=== PATIENT | male | born 1970 | race American Indian/Alaskan Native ===

== ENCOUNTER 2018-08-26 07:52 | Emergency (ER) | payer SELFPAY ==
--- NOTE | 2018-08-26 08:36 | Emergency Department Report ---
ED Eye Problem HPI - General Chief complaint: Eye Problems Stated complaint: LFT EYE PAIN Time Seen by Provider: 08/26/18 08:36 Source: patient Mode of arrival: Ambulatory Limitations: No Limitations - History of Present Illness Initial comments: 47-year-old -[place] male presents to the emergency room for left eye injury occurred on Wednesday. Patient states he injured his arm while moving furniture. Patient has taken nothing for pain. He does admit to some blurriness. Patient does report a past medical history of asthma COPD and sleep apnea. Patient has no primary care provider and is allergic to Wellbutrin. chief complaint: eye pain Onset/Timin -: days(s) If Injury: direct trauma Eye Symptoms: pain Severity scale (0 -10): 4 If Pain, Quality: sharp, aching Consistency: intermittent Associated Symptoms: none Treatments Prior to Arrival: none - Related Data Patient Tetanus UTD: No Previous Rx's Medication Instructions Recorded Last Taken Type Erythromycin [Erythromycin Ophth 1 applic OP QID 10 Days #1 tube 08/26/18 Unknown Rx Oint] Ibuprofen [Motrin 800 MG tab] 800 mg PO Q8HR PRN #30 tablet 08/26/18 Unknown Rx Allergies Allergy/AdvReac Type Severity Reaction Status Date / Time bupropion [From Wellbutrin] Allergy Anaphylaxis Verified 08/26/18 08:03 ED Review of Systems ROS: Stated complaint: LFT EYE PAIN Other details as noted in HPI Comment: All other systems reviewed and negative Eyes: eye pain ED Past Medical Hx - Past Medical History Previous Medical History?: Yes Hx Asthma: Yes Hx COPD: Yes Additional medical history: Sleep apnea - Surgical History Past Surgical History?: No - Social History Smoking Status: Never Smoker Substance Use Type: None - Medications Home Medications: Home Medications Medication Instructions Recorded Confirmed Last Taken Type Erythromycin [Erythromycin Ophth 1 applic OP QID 10 Days #1 tube 08/26/18 Unknown Rx Oint] Ibuprofen [Motrin 800 MG tab] 800 mg PO Q8HR PRN #30 tablet 08/26/18 Unknown Rx ED Physical Exam - General Limitations: No Limitations General appearance: alert, in no apparent distress - Head Head exam: Present: atraumatic, normocephalic - Eye Pupils: Present: other (left eye foreign body cornea are proximal to 7:00) - Expanded Eye Exam Expanded Eyelids: Swelling: Left - ENT ENT exam: Present: mucous membranes moist - Neck Neck exam: Present: normal inspection, full ROM - Neurological Exam Neurological exam: Present: alert, oriented X3 - Psychiatric Psychiatric exam: Present: normal affect, normal mood - Skin Skin exam: Present: warm, dry, intact, normal color. Absent: rash ED Course Vital Signs 08/26/18 08:09 Temperature 98.2 F Pulse Rate 82 Respiratory 16 Rate Blood Pressure 152/103 [Left] O2 Sat by Pulse 100 Oximetry Critical care attestation.: If time is entered above; I have spent that time in minutes in the direct care of this critically ill patient, excluding procedure time. ED Disposition Clinical Impression: Foreign body in eye Disposition: DC-01 TO HOME OR SELFCARE Is pt being admited?: No Does the pt Need Aspirin: No Condition: Stable Instructions: Eye Foreign Body (ED) Additional Instructions: Please use antibiotic eye ointment as prescribed. Ibuprofen for pain management. Increase her water intake while taking ibuprofen. It is very important for you to follow up with an muffle operator I have listed several below for your convenience. Prescriptions: Erythromycin [Erythromycin Ophth Oint] 1 applic OP QID 10 Days #1 tube Ibuprofen [Motrin 800 MG tab] 800 mg PO Q8HR PRN #30 tablet PRN Reason: Pain , Severe (7-10) Referrals: KYMBERLY MERCER MD [Staff Physician] - 3-5 Days [facility] [Provider Group] - 3-5 Days [facility] [Provider Group] - 3-5 Days
[2018-08-26] MEDS ORDERED: FUL-GLO OP ONE (08:58)
[2018-08-26] MEDS ORDERED: BSS OU ONE (08:58)
[2018-08-26] MEDS ORDERED: IBUPROFEN PO ONE (08:59)
[2018-08-26 10:24] VITALS: BP 130/85
== END 2018-08-26 10:21 | disposition home or self-care (01) ==
LOC: ED 07:52
DX: M79.5 Residual foreign body in soft tissue (principal); Z88.8 Allergy status to other drugs, medicaments and biological substances
CPT/HCPCS: 99282

== ENCOUNTER 2020-01-21 18:49 | Emergency (ER) | payer SELFPAY ==
[2020-01-21] MEDS ORDERED: KETOROLAC 60 MG/2 ML INJ IM ONE (20:23)
[2020-01-21] MEDS ORDERED: IPRATROPIUM/ALBUTEROL SULFATE 3 ML AMPUL.NEB IH ONE (20:23)
[2020-01-21] MEDS ORDERED: HYDROcodone/ACETAMINOPHEN 5-325 MG TAB PO ONE (20:23)
--- NOTE | 2020-01-21 21:15 | XRay Report ---
RIGHT ANKLE 3 VIEWS 2024 INDICATION: persistant r ankle pain, fxt in 12/12, no f/u COMPARISON: 12/13/2019 FINDINGS: The previously noted oblique fracture of the distal fibula is again seen. Callus formation is noted but I do not see obvious bony union. There is still mild posterior displacement and mild ove rriding. Mild subluxation of the tibia medially on the talus is again noted though is improved. Diffu se soft tissue swelling is seen. No additional fractures are noted. Signer Name: Grover Zuñiga MD Signed: 01/21/2020 9:10 PM Workstation Name: [id number]
--- NOTE | 2020-01-21 21:21 | XRay Report ---
CHEST 1 VIEW 194 INDICATION / CLINICAL INFORMATION: sob COMPARISON: None available. FINDINGS: SUPPORT DEVICES: None HEART / MEDIASTINUM: No significant abnormality. LUNGS / PLEURA: No significant pulmonary or pleural abnormality. No pneumothorax. ADDITIONAL FINDINGS: No significant additional findings. IMPRESSION: No significant acute abnormality Signer Name: Grover Zuñiga MD Signed: 01/21/2020 9:17 PM Workstation Name: [id number]
--- NOTE | 2020-01-21 21:54 | Emergency Department Report ---
ED Lower Extremity HPI - General Chief Complaint: Dyspnea/Respdistress Stated Complaint: RENAE Time Seen by Provider: 01/21/20 19:17 Source: EMS Mode of arrival: Stretcher Limitations: Physical Limitation - History of Present Illness Initial Comments: 49-year-old male who admits to cocaine abuse, alcohol abuse, and marijuana abuse with a past medical history of asthma, COPD, sleep apnea presents to the hospital complaining of chronic shortness of breath which is unchanged and significant right ankle pain. Patient states he fractured his ankle and was seen here December 13, 2019. Patient denies reinjuring his ankle. Patient states that since being diagnosed with ankle fracture here he was seen at [place]. He has been told that he needs surgery but did not follow-up. He also is not currently wearing a splint or cast because his splint got wet and therefore he removed it. Even though he is supposed to be nonweightbearing he is bearing weight on this broken ankle. Patient now presents to the hospital with moderate to severe right ankle pain worse with movement, palpation, ambulation. He states he has been unable to place pressure on it since last night. Patient states that he has chronic shortness of breath that is unchanged and denies worsening and chronic cough or fever. Patient was found outside a building with shortness of breath as per EMS. He received albuterol 5 mg inhaled in route with improvement. Patient admits to active abuse cocaine, alcohol, and marijuana but denies history of alcohol withdrawal tremors. - Related Data Previous Rx's Medication Instructions Recorded Last Taken Type Erythromycin [Erythromycin Ophth 1 applic OP QID 10 Days #1 tube 08/26/18 Unkno wn Rx Oint] Ibuprofen [Motrin 800 MG tab] 800 mg PO Q8HR PRN #30 tablet 08/26/18 Unknown Rx HYDROcodone/APAP 5-325 [[place] 1 each PO Q6HR PRN #12 tablet 12/13/19 Unknown Rx 5/325] Ibuprofen [Motrin 800 MG tab] 800 mg PO Q8HR PRN #20 tablet 12/13/19 Unknown Rx Albuterol Sulfate [Proventil Hfa] 1 - 2 puff IH Q4HR PRN #1 01/21/20 Unknown Rx hfa.aer.ad Ibuprofen [Motrin] 800 mg PO Q8HR PRN #20 tablet 01/21/20 Unknown Rx Prednisone [predniSONE 10 mg 10 mg PO .TAPER #1 tab.ds.pk 01/21/20 Unknown Rx (6-Day Pack, 21 Tabs)] Allergies Allergy/AdvReac Type Severity Reaction Status Date / Time bupropion [From Wellbutrin] Allergy Anaphylaxis Verified 08/26/18 08:03 ED Review of Systems ROS: Stated complaint: RENAE Other details as noted in HPI Comment: All other systems reviewed and negative ED Past Medical Hx - Past Medical History Previous Medical History?: Yes Hx Asthma: Yes Hx COPD: Yes Additional medical history: Sleep apnea - Surgical History Past Surgical History?: Yes - Social History Smoking Status: Current Every Day Smoker Substance Use Type: Alcohol, Cocaine, Marijuana - Medications Home Medications: Home Medications Medication Instructions Recorded Confirmed Last Taken Type Erythromycin [Erythromycin Ophth 1 applic OP QID 10 Days #1 tube 08/26/18 Unknown Rx Oint] Ibuprofen [Motrin 800 MG tab] 800 mg PO Q8HR PRN #30 tablet 08/26/18 01/22/20 Unknown Rx HYDROcodone/APAP 5-325 [[place] 1 each PO Q6HR PRN #12 tablet 12/13/19 01/22/20 Unknown Rx 5/325] Ibuprofen [Motrin 800 MG tab] 800 mg PO Q8HR PRN #20 tablet 12/13/19 01/22/20 Unknown Rx Albuterol Sulfate [Proventil Hfa] 1 - 2 puff IH Q4HR PRN #1 01/21/20 Unknown Rx hfa.aer.ad Ibuprofen [Motrin] 800 mg PO Q8HR PRN #20 tablet 01/21/20 Unknown Rx Prednisone [predniSONE 10 mg 10 mg PO .TAPER #1 tab.ds.pk 01/21/20 Unknown Rx (6-Day Pack, 21 Tabs)] ED Physical Exam - General Limitations: Physical Limitation - Other Other exam information: General: Mild distress secondary pain Head: Atraumatic Eyes: normal appearance ENT: Moist mucous membranes Neck: Normal appearance, no midline tenderness Chest: Mild bilateral expiratory wheezing without tachypnea or accessory muscle use CV: Regular rate and rhythm Abdomen: Soft, normal bowel sounds, nontender, nondistended, no rebound or guarding Back: Normal inspection Extremity: Diffuse right ankle swelling with tenderness on the medial lateral malleolus. 2+ DP and posterior tibial pulses. Cap refill less than 2 seconds. Pain with flexion and extension of ankle Neuro: Alert O x 3, no facial asymmetry, speech clear, no gross motor sensory deficit Psych: Appropriate behavior Skin: No rash ED Course Vital Signs 01/21/20 01/21/20 01/21/20 19:36 20:00 21:00 Temperature 98.3 F Pulse Rate 99 H 109 H 97 H Respiratory 16 29 H 19 Rate Blood Pressure 142/76 133/82 Blood Pressure 145/94 [Left] O2 Sat by Pulse 99 95 97 Oximetry 01/21/20 01/21/20 01/21/20 21:07 21:08 21:38 Temperature Pulse Rate Respiratory 16 19 16 Rate Blood Pressure Blood Pressure [Left] O2 Sat by Pulse Oximetry 01/21/20 01/22/20 01/22/20 22:07 00:09 01:00 Temperature 98.1 F Pulse Rate 72 Respiratory 16 18 20 Rate Blood Pressure Blood Pressure 117/76 [Left] O2 Sat by Pulse 100 97 Oximetry ED Lower Extremity MDM - Lab Data Result diagrams: 01/22/20 00:15 01/22/20 00:15 Lab Results 01/22/20 01/22/20 01/22/20 Range/Units 00:15 00:15 00:15 WBC 6.0 (4.5-11.0) K/mm3 RBC 4.00 (3.65-5.03) M/mm3 Hgb 13.7 (11.8-15.2) gm/dl Hct 40.2 (35.5-45.6) % MCV 101 H (84-94) fl MCH 34 H (28-32) pg MCHC 34 (32-34) % RDW 14.3 (13.2-15.2) % Plt Count 293 (140-440) K/mm3 Lymph % (Auto) 41.5 H (13.4-35.0) % Richardson % (Auto) 5.7 (0.0-7.3) % Eos % (Auto) 5.8 H (0.0-4.3) % Baso % (Auto) 0.6 (0.0-1.8) % Lymph # (Auto) 2.5 (1.2-5.4) K/mm3 Richardson # (Auto) 0.3 (0.0-0.8) K/mm3 Eos # (Auto) 0.3 (0.0-0.4) K/mm3 Baso # (Auto) 0.0 (0.0-0.1) K/mm3 Seg Neutrophils % 46.4 (40.0-70.0) % Seg Neutrophils # 2.8 (1.8-7.7) K/mm3 Sodium 141 (137-145) mmol/L Potassium 4.2 (3.6-5.0) mmol/L Chloride 101.7 (98-107) mmol/L Carbon Dioxide 27 (22-30) mmol/L Anion Gap 17 mmol/L BUN 11 (9-20) mg/dL Creatinine 0.9 (0.8-1.3) mg/dL Estimated GFR > 60 ml/min BUN/Creatinine Ratio 12 % Glucose 95 (75-100) mg/dL Calcium 9.3 (8.4-10.2) mg/dL Magnesium 1.80 (1.7-2.3) mg/dL Total Creatine Kinase 192 H (55-170) units/L Urine Color (Yellow) Urine Turbidity (Clear) Urine pH (5.0-7.0) Ur Specific [place] (1.003-1.030) Urine Protein (Negative) mg/dL Urine Glucose (UA) (Negative) mg/dL Urine Ketones (Negative) mg/dL Urine Blood (Negative) Urine Nitrite (Negative) Urine Bilirubin (Negative) Urine Urobilinogen (<2.0) mg/dL Ur Leukocyte Esterase (Negative) Urine WBC (Auto) (0.0-6.0) /HPF Urine RBC (Auto) (0.0-6.0) /HPF U Epithel Cells (Auto) (0-13.0) /HPF Urine Bacteria (Auto) (Negative) /HPF Urine Mucus /HPF Salicylates < 0.3 L (2.8-20.0) mg/dL Urine Opiates Screen Urine Methadone Screen Acetaminophen (10.0-30.0) ug/mL Ur Barbiturates Screen Ur Phencyclidine Scrn Ur Amphetamines Screen U Benzodiazepines Scrn Urine Cocaine Screen U Marijuana (THC) Screen Drugs of Abuse Note Plasma/Serum Alcohol (0-0.07) % 01/22/20 01/22/20 01/22/20 Range/Units 00:15 00:15 01:34 WBC (4.5-11.0) K/mm3 RBC (3.65-5.03) M/mm3 Hgb (11.8-15.2) gm/dl Hct (35.5-45.6) % MCV (84-94) fl MCH (28-32) pg MCHC (32-34) % RDW (13.2-15.2) % Plt Count (140-440) K/mm3 Lymph % (Auto) (13.4-35.0) % Richardson % (Auto) (0.0-7.3) % Eos % (Auto) (0.0-4.3) % Baso % (Auto) (0.0-1.8) % Lymph # (Auto) (1.2-5.4) K/mm3 Richardson # (Auto) (0.0-0.8) K/mm3 Eos # (Auto) (0.0-0.4) K/mm3 Baso # (Auto) (0.0-0.1) K/mm3 Seg Neutrophils % (40.0-70.0) % Seg Neutrophils # (1.8-7.7) K/mm3 Sodium (137-145) mmol/L Potassium (3.6-5.0) mmol/L Chloride (98-107) mmol/L Carbon Dioxide (22-30) mmol/L Anion Gap mmol/L BUN (9-20) mg/dL Creatinine (0.8-1.3) mg/dL Estimated GFR ml/min BUN/Creatinine Ratio % Glucose (75-100) mg/dL Calcium (8.4-10.2) mg/dL Magnesium (1.7-2.3) mg/dL Total Creatine Kinase (55-170) units/L Urine Color Yellow (Yellow) Urine Turbidity Clear (Clear) Urine pH 5.0 (5.0-7.0) Ur Specific [place] 1.024 (1.003-1.030) Urine Protein <15 mg/dl (Negative) mg/dL Urine Glucose (UA) Neg (Negative) mg/dL Urine Ketones 20 (Negative) mg/dL Urine Blood Sm (Negative) Urine Nitrite Neg (Negative) Urine Bilirubin Neg (Negative) Urine Urobilinogen 4.0 (<2.0) mg/dL Ur Leukocyte Esterase Neg (Negative) Urine WBC (Auto) 3.0 (0.0-6.0) /HPF Urine RBC (Auto) 1.0 (0.0-6.0) /HPF U Epithel Cells (Auto) < 1.0 (0-13.0) /HPF Urine Bacteria (Auto) 1+ (Negative) /HPF Urine Mucus 3+ /HPF Salicylates (2.8-20.0) mg/dL Urine Opiates Screen Urine Methadone Screen Acetaminophen 5.0 L (10.0-30.0) ug/mL Ur Barbiturates Screen Ur Phencyclidine Scrn Ur Amphetamines Screen U Benzodiazepines Scrn Urine Cocaine Screen U Marijuana (THC) Screen Drugs of Abuse Note Plasma/Serum Alcohol < 0.01 (0-0.07) % 01/22/20 Range/Units 01:34 WBC (4.5-11.0) K/mm3 RBC (3.65-5.03) M/mm3 Hgb (11.8-15.2) gm/dl Hct (35.5-45.6) % MCV (84-94) fl MCH (28-32) pg MCHC (32-34) % RDW (13.2-15.2) % Plt Count (140-440) K/mm3 Lymph % (Auto) (13.4-35.0) % Richardson % (Auto) (0.0-7.3) % Eos % (Auto) (0.0-4.3) % Baso % (Auto) (0.0-1.8) % Lymph # (Auto) (1.2-5.4) K/mm3 Richardson # (Auto) (0.0-0.8) K/mm3 Eos # (Auto) (0.0-0.4) K/mm3 Baso # (Auto) (0.0-0.1) K/mm3 Seg Neutrophils % (40.0-70.0) % Seg Neutrophils # (1.8-7.7) K/mm3 Sodium (137-145) mmol/L Potassium (3.6-5.0) mmol/L Chloride (98-107) mmol/L Carbon Dioxide (22-30) mmol/L Anion Gap mmol/L BUN (9-20) mg/dL Creatinine (0.8-1.3) mg/dL Estimated GFR ml/min BUN/Creatinine Ratio % Glucose (75-100) mg/dL Calcium (8.4-10.2) mg/dL Magnesium (1.7-2.3) mg/dL Total Creatine Kinase (55-170) units/L Urine Color (Yellow) Urine Turbidity (Clear) Urine pH (5.0-7.0) Ur Specific [place] (1.003-1.030) Urine Protein (Negative) mg/dL Urine Glucose (UA) (Negative) mg/dL Urine Ketones (Negative) mg/dL Urine Blood (Negative) Urine Nitrite (Negative) Urine Bilirubin (Negative) Urine Urobilinogen (<2.0) mg/dL Ur Leukocyte Esterase (Negative) Urine WBC (Auto) (0.0-6.0) /HPF Urine RBC (Auto) (0.0-6.0) /HPF U Epithel Cells (Auto) (0-13.0) /HPF Urine Bacteria (Auto) (Negative) /HPF Urine Mucus /HPF Salicylates (2.8-20.0) mg/dL Urine Opiates Screen Presumptive negative Urine Methadone Screen Presumptive negative Acetaminophen (10.0-30.0) ug/mL Ur Barbiturates Screen Presumptive negative Ur Phencyclidine Scrn Presumptive negative Ur Amphetamines Screen Presumptive negative U Benzodiazepines Scrn Presumptive negative Urine Cocaine Screen Presumptive positive U Marijuana (THC) Screen Presumptive positive Drugs of Abuse Note Disclamer Plasma/Serum Alcohol (0-0.07) % - Radiology Data Radiology results: report reviewed CHEST 1 VIEW 1941 INDICATION / CLINICAL INFORMATION: sob COMPARISON: None available. FINDINGS: SUPPORT DEVICES: None HEART / MEDIASTINUM: No significant abnormality. LUNGS / PLEURA: No significant pulmonary or pleural abnormality. No pneumothorax. ADDITIONAL FINDINGS: No significant additional findings. IMPRESSION: No significant acute abnormality RIGHT ANKLE 3 VIEWS 2024 INDICATION: persistant r ankle pain, fxt in 12/12, no f/u COMPARISON: 12/13/2019 FINDINGS: The previously noted oblique fracture of the distal fibula is again seen. Callus formation is noted but I do not see obvious bony union. There is still mild posterior displacement and mild overriding. Mild subluxation of the tibia medially on the talus is again noted though is improved. Diffuse soft tissue swelling is seen. No additional fractures are noted. - Medical Decision Making chest X-ray does not reveal acute abnormality and patient states he has chronic shortness of breath and does not seem to be overly concerned about his shortness of breath symptoms. mild wheezing noted in the ed without distress or hypoxia. Patient will be treated for asthma as an outpatient. Patient has ongoing progressively worsening right ankle pain. He has a known fracture and has been noncompliant with treatment. He likely needed a splint with trans for to a cast and possible outpatient surgery. Patient instead has been walking around and bearing weight on the broken ankle without a splint, crutches, and abusing d rugs. Patient placed in a splint in the ED and provided crutches and noted to avoid bearing weight and also to provide additional support to fracture. Once again outpatient orthopedic follow-up will be suggested Discharge patient is now requesting to go to [facility] for substance abuse stating his substance abuse is impeding his follow-up for his broken ankle. He is homeless. He has not endorsed SI or HI. He will be discharged for outpatient resources. 12 am At time of discharge patient denies persistent nurse that he is suicidal because he "has nowhere to go". He also states he wants help for substance abuse and states he does not have the resources to get help on his own. I highly suspect that patient is malingering because he is homeless and wants him to go to an inpatient facility. He did not initially endorse suicidal ideation Labs to be ordered at this time for medical clearance and patient will await mental health evaluation and the morning. At this time I have not signed a 1013. Mental health consult requested to determine if requires inpatient admission then a 1013 can be signed at that time Discharge will be placed on hold Critical Care Time: No Critical care attestation.: If time is entered above; I have spent that time in minutes in the direct care of this critically ill patient, excluding procedure time. ED Disposition Clinical Impression: Asthma exacerbation, Polysubstance abuse, Noncompliance with medication regimen Closed right ankle fracture Qualifiers: Encounter type: subsequent encounter Fracture healing: with nonunion Qualified Code(s): S82.891K - Other fracture of right lower leg, subsequent encounter for closed fracture with nonunion Disposition: TO HOME OR SELFCARE Is pt being admited?: No Does the pt Need Aspirin: No Condition: Stable Instructions: Asthma (ED), Ankle Fracture (ED), Polysubstance Abuse (ED) Additional Instructions: Take the medication as prescribed. Follow-up with your orthopedic doctor for treatment of your ankle fracture HOMELESS RESOURCES: [facility] NEED HELP? If you are in need of help or know someone who does, please contact us at [email or web address] call , or come to our offices at [address] [place] [address], Wednesday-Wednesday beginning at 8AM. [facility] Admission at 7am Wed to Wed Address: [address] [place] [address] Client Engagement [phone] Regular program admission occurs Wednesday through Wednesday at 7:00 amand operates on a first come, first serve basis.Because we cant anticipate program availability in advance andprogram spots are in high demand, we recommend arriving early. Space fills up fast! Next steps can include: Assignment to a [facility] program bed Connection to and placement in a partner program, or Referral to a partner agency [place]: [facility] Address: [facility] [place] [address] How do I join the [facility] housing program? Our housing programs are offered based on availability. If you are looking to participate in our housing program, simply call [phone] to find out if we have available space. Since we do receive many calls, please allow up to 48 hours for one of our housing specialists to return your call. If we do not have vacancies, we suggest callingthe [facility] hotline at 211 for additional housing options. [facility] at 4:30pm daily Address: [address] [place] [address] In case of an emergency, please contact the following numbers: [place] Crisis and Access Line: Number: Crisis Text Line: (Text START) Number: [phone] Suicide Prevention Line: Number: Emergency Number: 911 SUBSTANCE ABUSE PROGRAMS: [facility]: Location: [place], [place] [facility] Address: [address] [place] [address] [facility]: Address: [address] [place] [address] [place] [address] [facility]: Address: [facility] [place] [address] [facility]: Address: [address] [place] [address] [facility] Address: [address] [place] [address]. Please contact above numbers to attempt placement into free based program. Medicaid Programs: [facility]: Address: [address] [place] [address] [facility]: Address: [address] [place] [address] [facility] Behavioral Health Resources: [facility] ([facility]) [address] [place] [address] / [phone] Wednesday thru Wednesday - 8am - 5pm [facility] Address: [address] [place] [address] Wednesday thru Wednesday- 7am-2pm [facility] Address: [address] [place] [address] Wednesday thru Wednesday: 8:30AM-5PM CRISIS RESOURCES [place] Crisis Line: Suicide Prevention Line: Crisis Text Line: Text START to 103838 Emergency: 911 Prescriptions: Ibuprofen [Motrin] 800 mg PO Q8HR PRN #20 tablet PRN Reason: Pain , Severe (7-10) Prednisone [predniSONE 10 mg (6-Day Pack, 21 Tabs)] 10 mg PO .TAPER #1 tab.ds.pk Albuterol Sulfate [Proventil Hfa] 1 - 2 puff IH Q4HR PRN #1 hfa.aer.ad PRN Reason: Wheezing Referrals: PRIMARY CARE, [Primary Care Provider] - 3-5 Days KIT BEAULIEU MD [Staff Physician] - 3-5 Days (Orthopedic doctor) [facility] [Provider Group] - 3-5 Days (Primary care clinic)
[2020-01-21] MEDS ORDERED: predniSONE 20 MG TAB PO ONE (21:57)
[2020-01-22] MEDS ORDERED: ALBUTEROL 2.5 MG/3 ML NEBU IH PRN (00:08)
[2020-01-22 00:09] VITALS: BP 117/76
[2020-01-22] MEDS ORDERED: ACETAMINOPHEN 325 MG TAB PO PRN (00:12)
[2020-01-22 00:56] LABS: Basophils % (Auto) 0.6 % (0.0-1.8); Eosinophils # (Auto) 0.3 K/mm3 (0.0-0.4); Eosinophils % (Auto) 5.8 % (0.0-4.3); Hematocrit 40.2 % (35.5-45.6); Hemoglobin 13.7 gm/dl (11.8-15.2); Lymphocytes # (Auto) 2.5 K/mm3 (1.2-5.4); Lymphocytes % (Auto) 41.5 % (13.4-35.0); Mean Corpuscular HGB Conc 34 % (32-34); Mean Corpuscular Volume 101 fl (84-94); Monocytes # (Auto) 0.3 K/mm3 (0.0-0.8); Monocytes % (Auto) 5.7 % (0.0-7.3); Platelet Count 293 K/mm3 (140-440); Red Cell Distribution Width 14.3 % (13.2-15.2)
[2020-01-22 01:14] LABS: BUN/Creatinine Ratio 12; Blood Urea Nitrogen 11 mg/dL (9-20); Calcium 9.3 mg/dL (8.4-10.2); Hemolysis Index 7
[2020-01-22 01:56] LABS: Amphetamine Screen,Urine PRESUMPTIVE NEGATIVE; Benzodiazepines Screen,Urine PRESUMPTIVE NEGATIVE; Cannabinoid Screen,Urine PRESUMPTIVE POSITIVE; Cocaine Screen,Urine PRESUMPTIVE POSITIVE; Methadone Screen,Urine PRESUMPTIVE NEGATIVE; Opiate Screen,Urine PRESUMPTIVE NEGATIVE
[2020-01-22 02:05] LABS: Bacteria,Urine 1+ /HPF (Negative); Bilirubin,Urine NEG (Negative); Blood,Urine SM (Negative); Color,Urine Yellow (Yellow); Mucus,Urine 3+ /HPF; Protein,Urine <15 mg/dL mg/dL (Negative)
[2020-01-22] MEDS ORDERED: predniSONE 10 MG TAB PO SCH (10:00)
== END 2020-01-22 14:01 | disposition home or self-care (01) ==
LOC: EEVIPCON 18:49 → ED 18:49
DX: S82.891K Other fracture of right lower leg, subsequent encounter for closed fracture with nonunion (principal); J45.901 Unspecified asthma with (acute) exacerbation; F15.10 Other stimulant abuse, uncomplicated; F12.10 Cannabis abuse, uncomplicated; F17.200 Nicotine dependence, unspecified, uncomplicated; F14.10 Cocaine abuse, uncomplicated; Z79.899 Other long term (current) drug therapy; Z88.8 Allergy status to other drugs, medicaments and biological substances; X58.XXXD Exposure to other specified factors, subsequent encounter
CPT/HCPCS: 29515; 36415; 71045; 73610; 80048; 80307; 81001; 82550; 83735; 85025; 94640; 96372; 99285; J1885; J7512; 80320; G0480